=== PATIENT | female | born 1940 | race Caucasian/White ===

== ENCOUNTER → 2021-01-05 | Outpatient (CLI) | payer MEDICARE ==
[2014-04-03 18:01] VITALS: BP 136/73
--- NOTE | 2021-01-05 12:40 | RAD ---
EXAM: Chest, 2 views. HISTORY: Shortness of air. COMPARISON: None. FINDINGS: 2 views of the chest are obtained. There is hyperinflation due to emphysema. There is no co nsolidation, pleural effusion or pneumothorax. The heart is normal in size. There is a coronary arter y stent. There is a cardiac pacemaker defibrillator without a cast shadow. There are multiple thoraci c and vertebral compression fractures and vertebroplasty changes. IMPRESSION: Emphysema. No acute pulmonary finding. Electronically signed by: Mattie Julien MD (01/05/2021 12:37 PM) [id number]
== END ==
LOC: RAD 12:02
PROVIDERS: ATTEND Internal Medicine Pulmonary Disease
DX: J43.9 Emphysema, unspecified (principal); J98.11 Atelectasis; M48.54XA Collapsed vertebra, not elsewhere classified, thoracic region, initial encounter for fracture
CPT/HCPCS: 71046